=== PATIENT | female | born 1965 | race Caucasian/White ===

== ENCOUNTER 2018-01-26 07:15 | Inpatient (IN) ==
--- NOTE | 2018-01-26 07:37 | History & Physical Report ---
Date of Encounter: 01/26/18 Time of Encounter: 07:36 24 Hour HP Update - Instructions Instructions: If the History and Physical is less than 30 days old and was completed prior to A.M. admission and or procedure and has NOT been updated on calendar day of procedure please complete this update prior to performing procedure. - Update Patient reports changes in Medical Condition: No Changes in examination, assessment, or condition: No Changes in Medication: No Preop tests/diagnostics Reviewed: Yes Surgery Remains Indicated: Yes Consent for Planned Operative Procedure(s) Verified: Yes - Pre-Operative Checklist Preoperative Checklist Indicated: Yes Prophylactic Antibiotic Ordered: Yes Home Medications Include Beta Sarahy: No Beta Sarahy Taken Today (Day of Surgery): No Beta Sarahy Taken Yesterday (Day Prior to Surgery): No Is VTE Prophylaxis Indicated?: Yes
[2018-01-26] MEDS ORDERED: Famotidine 20 MG/2 ML VIAL IVP ONE (08:04)
[2018-01-26] MEDS ORDERED: Metoclopramide 10 MG/2 ML VIAL IVP ONE (08:04)
[2018-01-26] MEDS ORDERED: Scopolamine Patch 1.5 MG PATCH.TD72 TD ONE (08:04)
[2018-01-26] MEDS ORDERED: Pregabalin 75 MG CAPSULE PO ONE (08:05)
[2018-01-26] MEDS ORDERED: Acetaminophen IV 1,000 MG/100 ML INFUS..BTL IVPB STA (08:05)
--- NOTE | 2018-01-26 08:09 | Anesthesia Evaluation PreOp ---
Date of Encounter: 01/26/18 Time of Encounter: 08:07 - Past History Planned Operation: CHANTAL/BSO, excision condyloma Cardiac History: HTN Pulmonary History: Denies Any Significant HX THEATRE PROGRAM DIRECTOR History: Denies Any Significant HX Other Medical History: Diabetes Type II (poorly controlled. HbA1c = 8/Avg glucose = 183) Anesthesia History: No Prior Anesthetic Complications, Past Anesthesia (Tubal Ligation, Conization, Excision R-LE tumor) : No Alcohol Use: none Drug use: none Medications and Allergies Ferrous Sulfate [Iron] 325 mg PO BID 01/26/18 [History] Metformin HCl [Glucophage] 1,000 mg PO BID 01/26/18 [History] Olmesartan/Hydrochlorothiazide [Olmesartan-Hctz 20-12.5 mg Tab] 1.5 tab PO DAILY 01/26/18 [History] Pioglitazone HCl [Actos] 30 mg PO DAILY 01/26/18 [History] 3 Allergy/AdvReac Type Severity Reaction Status Date / Time Amoxicillin Allergy Rash Verified 01/26/18 07:42 - Meds/Allergy Pre-op Review Medications Reviewed: Yes Allergies Reviewed: Yes Beta Blockers on Current Med List: No Anesthesia Results - Labs Laboratory Tests 01/02/18 01/19/18 01/19/18 13:01 12:05 12:05 WBC 6.4 Hgb 10.9 L Hct 32.6 L Plt Count 299 Est Mean Plasma Glucose 183 Hemoglobin A1c 8.0 H Serum , Qual 01/19/18 12:05 WBC Hgb Hct Plt Count Est Mean Plasma Glucose Hemoglobin A1c Serum , Qual Negative - Imaging EKG: image reviewed (EKG dated 01/19/2018 - 95bpm SINUS RHYTHM LOW QRS VOLTAGE IN PRECORDIAL LEADS POSSIBLE ANTERIOR MYOCARDIAL INFARCTION, PROBABLY OLD Electronically Signed On 01-21-2018 6:07:36 EDT by Dick Norman) Anesthesia Exam O2 Sat Height 1.65 m Height 1.65 m Weight 89.358 kg Weight 89.358 kg O2 Sat by Pulse Oximetry 98 Vital Signs Temp Pulse Resp BP Pulse Ox 98.1 F 97 18 156/96 98 01/26/18 07:45 01/26/18 07:45 01/26/18 07:45 01/26/18 07:45 01/26/18 07:45 Height: 5'5" Weight: 197# BMI = 33 NPO (# of Hours): MNoc - HEENT Pupil (Motor): Pupils equal, EOMI Mallampati: II Teeth: Normal Oral Opening: Greater than 3 - THEATRE PROGRAM DIRECTOR LOC: Oriented THEATRE PROGRAM DIRECTOR Motor: Normal RUE, Normal LUE, Normal RLE, Normal LLE, Normal Face THEATRE PROGRAM DIRECTOR Sensory: Normal: RUE, LUE, RLE, LLE, Face - Cardiac Rhythm: Regular Murmur: None - Pulmonary Breath Sounds: bilateral Clear Respiratory Effort: Symmetrical Anesthesia Assess/Plan ASA Score: 3 (Obesity/BMI = 33, HTN, DM) Modified Lakeisha Scale for Level of Consciousness: Cooperative, oriented, and tranquil Anesthetic Plan: General, Regional Monitoring Plan: Standard Monitors Recovery Plan: PACU Anes Supervising Prov Stmt: PT seen/evaluated, R&B discussed, questions answered and consent obtained - MD Sendy
[2018-01-26] MEDS ORDERED: Lidocaine -MPF 2% 2 ML VIAL ONE ×2 (08:35→09:58)
[2018-01-26] MEDS ORDERED: *HR* FentaNYL (PF) 100 MCG/2 ML VIAL ONE (08:35)
[2018-01-26] MEDS ORDERED: *HR* Propofol 200 MG/20 ML VIAL IVP ONE (08:35)
[2018-01-26] MEDS ORDERED: *HR* Rocuronium Bromide 50 MG/5 ML VIAL ONE (08:35)
[2018-01-26] MEDS ORDERED: *HR* Midazolam HCl 2 MG/2 ML VIAL ONE (08:35)
[2018-01-26] MEDS ORDERED: Clindamycin 900 MG/50 ML 900 MG/50 ML IV.SOLN IVPB ONE (08:36)
[2018-01-26] MEDS ORDERED: Bupivacaine/EPI 1:200k 0.5%PF 10 ML VIAL ONE (08:37)
[2018-01-26] MEDS: Ringers Solution, Lactated 1,000 ML IVC SCH ×5 (08:37→19:52)
[2018-01-26] MEDS ORDERED: Bupivacaine/PF 0.75% in Dex 2 ML AMPUL INFILT ONE (08:45)
[2018-01-26] MEDS ORDERED: *HR* Morphine Sulfate/PF 10 MG/10 ML AMPUL ONE (09:07)
[2018-01-26] MEDS ORDERED: *HR* PHENYLEPHRINE 1,000 MCG/10 ML SYRINGE IVP ONE (09:47)
[2018-01-26] MEDS ORDERED: Dexamethasone 4 MG/ML VIAL ONE ×2 (10:22→11:53)
[2018-01-26] MEDS ORDERED: Ondansetron 4 MG/2 ML VIAL ONE (10:22)
[2018-01-26] MEDS ORDERED: EPHEDrine 50 MG/ML VIAL ONE (10:23)
[2018-01-26] MEDS ORDERED: Neostigmine Methylsulfate 3 MG/3 ML SYRINGE ONE (10:23)
[2018-01-26] MEDS ORDERED: *HR* HYDROmorphone (PF) 1 MG/ML SYRINGE IVP PRN (10:27)
[2018-01-26] MEDS ORDERED: Ondansetron 4 MG/2 ML VIAL IVP ONE (10:27)
[2018-01-26] MEDS ORDERED: *HR* Promethazine 25 MG/ML VIAL IVP PRN (10:27)
[2018-01-26] MEDS ORDERED: *HR* Morphine 2 MG/ML SYRINGE IVP PRN (10:27)
[2018-01-26] MEDS ORDERED: *HR* Succinylcholine 200 MG/10 ML VIAL IVP ONE (10:33)
[2018-01-26] MEDS ORDERED: Bupivacaine/Clonidine Syringe 1 EACH SYRINGE ONE (11:31)
--- NOTE | 2018-01-26 12:16 | OB/GYN Procedure Note ---
Hysterectomy - Diagnosis Date of procedure: 01/26/18 Hysterectomy pre-op: menorrhagia, symptomatic leiomyomata, other (Symptomatic condyloma) Post-op diagnosis: same - Procedure Hysterectomy procedure: total abdominal hysterectomy, bilateral salpingo- oophorectomy, other (Resection of multiple condyloma taking approximately 45 minutes) Surgeon: Kentrell Muro Was there an child care assistant present: Yes Finance Teacher: Nancy Rosado Anesthesia Type: General Estimated blood loss (cc): 450 Complications: none Specimens: right ovary, uterus, cervix, left ovary, right fallopian tube, left fallopian tube, other (Vaginal condyloma) Findings: Enlarged fibroid uterus normal fallopian tubes and ovaries multiple condyloma labia minora and majora Disposition: PACU Narrative: Patient's a 52-year-old female with very heavy prolonged menstrual cycles that are quite disabling. She also has multiple large condyloma labia minora and majora irritated and disfiguring. After discussing patient's options she desired total abdominal hysterectomy bilateral salpingectomy oophrectomy and resection of multiple condyloma she is aware operative risks and signed appropriate consent. Description procedure: Patient was taken operating room where general anesthesia was administered. She is prepped draped in usual sterile fashion. Bladder was drained with Goss catheter. Scalpel was used to make a Pfannenstiel skin incision which was taken down to the fascia fascia was incised midline fascial incision was extended bilaterally. Plane was developed and rectus muscle rectus fascia distally rectus muscles were run midline peritoneum was entered. No incision was extended bilaterally. Uterus is enlarged with multiple fibroids the largest fibroid being posteriorly along the uterus fundus. Both fallopian tubes and ovaries were normal. She was delivered abdominally and laparotomy sponges were placed in the abdomen to pack the bowel operative field. Ligatures taken crossed infundibulopelvic ligaments on each side these were cauterized and transected. LigaSure was then taken across the mesosalpinx and it was cauterized without difficulty. Ligatures taken crossed the round ligaments on each side these were cauterized and transected. Broad ligaments were cauterized with LigaSure and transected. This point Mary since counts were used to take down the bladder flap. He used to combination LigaSure as well as clamps to transect and ligate the parametrium on each side. Upon reaching levels cervix curved Robbi clamps taken crossed top the vagina these were transected and cervix uterus tubes and ovaries removed vaginal cuff was closed with 0 Vicryl. This point thorough irrigation was performed hemostasis was ensured. Fascia was closed with oh loop PDS. Skin edges reapproximated with 4-0 Vicryl. There were multiple large condyloma extending mostly along the upper labium minora and majora from half with the vagina around the clitoral lema. These multiple condyloma were sharply transected were shaved off the skin. All the incisions were then closed with 4-0 Vicryl in running and interrupted manner. In total to approximate 45 minutes to shave off transected and ligate the areas of transection. This point all sponge and instruments counts are correct patient was awakened taken recovery in good condition.
[2018-01-26] MEDS ORDERED: Naloxone 0.4 MG/ML INJ IVP PRN (12:18)
[2018-01-26] MEDS ORDERED: *HR* HYDROcodone/Acet 5/325 mg TABLET PO PRN (12:18)
[2018-01-26] MEDS ORDERED: Ondansetron 4 MG/2 ML VIAL IVP PRN (12:18)
[2018-01-26] MEDS ORDERED: Ibuprofen 600 MG TABLET PO PRN (12:20)
--- NOTE | 2018-01-26 12:54 | Anesthesia Evaluation Post Op ---
Date of Encounter: 01/26/18 Time of Encounter: 12:52 - Vital Signs Vital Signs: Vital Signs/O2 Sat/Glucose, Most Recent Temp Pulse Resp BP Pulse Ox 97.6 F 111 13 125/73 94 01/26/18 12:45 01/26/18 12:45 01/26/18 12:45 01/26/18 12:45 01/26/18 12:45 Blood Glucose* 166 - Lungs Lungs: Clear Ascult./Percussion - Airway Airway: Non-obstructed - Cardiovascular Regular Rate - Mental Status Mental Status: Alert & Oriented, Answers Appropriately - Pain Pain Scale: 0 Pain Scale used: Numeric (1 - 10) - Nausea Vomiting Nausea Vomiting: Not Present - Hydration Hydration: NPO, Has not voided - Discharge PostOp Status: Transfer Patient to floor
[2018-01-26] MEDS ORDERED: *HR* Dextrose 50 % in Water (Syg) 50 ML SYRINGE IVP PRN (16:15)
[2018-01-26] MEDS ORDERED: D5% in Water 1,000 ML IVC PRN (16:15)
[2018-01-26] MEDS ORDERED: Dextrose Gel 15 GM/37.5 ML TUBE PO PRN ×2 (16:15)
[2018-01-26] MEDS: Insulin LISPRO 300 UNITS/3 ML VIAL SQ SCH (18:01)
[2018-01-26] MEDS: Silver Sulfadiazine 50 GM TUBE TP SCH (19:52)
[2018-01-27] MEDS: Insulin LISPRO 300 UNITS/3 ML VIAL SQ SCH ×5 (00:24→22:07)
[2018-01-27 04:48] LABS: Basophils % 0.2 %; Eosinophils % 0.1 %; Hemoglobin 9.2 g/dL (11.5-15.4); Immature Granulocytes % 0.4 % (0-4); Lymphocytes # 1.6 K/mcL (0.6-4.6); Lymphocytes % 14.7 %; Mean Corpuscular HGB Conc 31.7 g/dL (31.6-35.5); Mean Corpuscular Hemoglobin 23.8 pg (28.0-33.3); Mean Corpuscular Volume 75.1 fL (83.0-100.0); Mean Platelet Volume 10.5 fL (9.4-12.4); Monocytes # 1.1 K/mcL (0.0-1.3); Monocytes % 9.5 %; Neutrophils # 8.3 K/mcL (1.6-8.9); Platelet Count 259 K/mcL (140-400); Red Blood Count 3.86 M/mcL (3.82-4.97); Red Cell Distribution Width 21.8 % (11.5-14.5); Segmented Neutrophils % 75.1 %
--- NOTE | 2018-01-27 08:05 | OB/GYN Progress Note ---
Date of Encounter: 01/27/18 Time of Encounter: 08:03 - Assessment and Plan (1) S/P CHANTAL-BSO (total abdominal hysterectomy and bilateral salpingo- oophorectomy) Current Visit: Yes Status: Acute Doing well, will cont post op care. Will start estrogen per pt request, pt aware of risks and benefits. (2) Diabetes Current Visit: Yes Status: Acute cont glucoregulation Qualifiers: Diabetes mellitus type: type 2 Diabetes mellitus complication status: without complication Qualified Code(s): E11.9 - Type 2 diabetes mellitus without complications Subjective - Subjective Principal diagnosis: s/p CHANTAL/BSO and condyloma resection Interval history: Pt looks great today. Sitting up and eating liquids. Good pain control. Objective - Vital Signs Latest vital signs: Vital Signs Temp Pulse Resp BP Pulse Ox 01/27/18 06:15 98.8 F 96 16 130/78 99 01/27/18 00:19 98.7 F 101 14 115/76 98 01/26/18 19:50 98.5 F 115 16 126/79 97 01/26/18 16:21 97.7 F 121 14 134/74 97 01/26/18 15:25 98.2 F 115 14 130/78 96 01/26/18 14:15 97.7 F 111 17 124/78 99 01/26/18 13:45 97.9 F 109 17 120/74 99 01/26/18 13:20 97.6 F 105 14 126/72 94 01/26/18 12:55 97.6 F 108 14 127/75 93 01/26/18 12:45 97.6 F 111 13 125/73 94 01/26/18 12:35 108 13 126/72 93 01/26/18 12:25 111 15 133/71 94 01/26/18 12:15 97.4 F L 115 16 127/76 100 Intake and Output 01/26/18 01/27/18 01/27/18 23:59 07:59 15:59 Intake Total 1120 / 1120 600 / 600 Output Total 850 / 850 1900 / 1900 Balance 270 / 270 -1300 / -1300 Intake: IV Fluids 1000 / 1000 Lactated Ringers 1,000 ML @ 125 1000 / 1000 mls/hr IVC .Q8H CHIP Rx#: [id number] Oral 120 / 120 600 / 600 Output: Catheter 850 / 850 1900 / 1900 Other: Meal Dinner Percent of Meal Consumed 30% Weight 90.718 kg Blood Glucose* 266 177 Patient Weight 01/27/18 23:59 Weight 90.718 kg - I&O's I&O's: Intake & Output 01/24/18 01/25/18 01/26/18 01/27/18 23:59 23:59 23:59 23:59 Intake Total 3120 / 3120 600 / 600 Output Total 1875 / 1875 1900 / 1900 Balance 1245 / 1245 -1300 / -1300 Weight 93.5 kg 90.718 kg - Exam Lungs: bilateral: normal Chest: Normal S1, Normal S2 Extremities: Present: normal Abdomen: Present: soft Incision OB: Present: normal, intact - Labs Labs: Abnormal lab results Hgb 9.2 g/dL (11.5-15.4) L 01/27/18 04:21 Hct 29.0 % (35.3-44.9) L 01/27/18 04:21 MCV 75.1 fL (83.0-100.0) L 01/27/18 04:21 MCH 23.8 pg (28.0-33.3) L 01/27/18 04:21 RDW 21.8 % (11.5-14.5) H 01/27/18 04:21 POC Glucose 150 mg/dL (70-99) H 01/27/18 07:36 Consult Discharge Plan - Plan Referrals: Kentrell Melgar DO [Primary Care Provider] -
[2018-01-27] MEDS: Valsartan 80 MG TABLET PO SCH (08:10)
[2018-01-27] MEDS: Silver Sulfadiazine 50 GM TUBE TP SCH ×2 (08:20→22:12)
[2018-01-27] MEDS ORDERED: Ondansetron ODT 4 MG TAB.RAPDIS SL PRN (19:00)
--- NOTE | 2018-01-28 07:54 | Discharge Summary ---
Date of Encounter: 01/28/18 Time of Encounter: 07:55 - Discharge Diagnosis (1) S/P CHANTAL-BSO (total abdominal hysterectomy and bilateral salpingo- oophorectomy) Priority: Primary Status: Acute Comments: Doing well, will d/c home. (2) Diabetes Priority: Secondary Status: Acute Comments: Encouraged on importance of tight glucoregulation Qualifiers: Diabetes mellitus type: type 2 Diabetes mellitus complication status: without complication Qualified Code(s): E11.9 - Type 2 diabetes mellitus without complications - Discharge Medications Prescriptions: HYDROcodone/Acet 5/325 mg [[place] 5-325 mg] 1 tab PO Q4HR PRN 7 Days #30 tablet PRN Reason: Moderate Pain (4-6) Ibuprofen [Motrin] 600 mg PO Q6HR PRN #40 tablet PRN Reason: Pain Estradiol 1 mg PO DAILY #90 tablet Home Medications: Ferrous Sulfate [Iron] 325 mg PO BID 01/26/18 [History] Metformin HCl [Glucophage] 1,000 mg PO BID 01/26/18 [History] Olmesartan/Hydrochlorothiazide [Olmesartan-Hctz 20-12.5 mg Tab] 1.5 tab PO DAILY 01/26/18 [History] Pioglitazone HCl [Actos] 30 mg PO DAILY 01/26/18 [History] Estradiol 1 mg PO DAILY #90 tablet 01/28/18 [Rx] HYDROcodone/Acet 5/325 mg [[place] 5-325 mg] 1 tab PO Q4HR PRN 7 Days #30 tablet 01/28/18 [Rx] Ibuprofen [Motrin] 600 mg PO Q6HR PRN #40 tablet 01/28/18 [Rx] Allergies/Adverse Reactions: 3 Allergy/AdvReac Type Severity Reaction Status Date / Time Amoxicillin Allergy Rash Verified 01/26/18 07:42 Data Procedures and tests throughout hospitalization: Laboratory Tests 01/26/18 01/26/18 01/26/18 07:43 08:37 17:50 WBC RBC Hgb Hct MCV MCH MCHC RDW Plt Count MPV Immature Gran % Seg Neutrophils % Lymphocytes % Monocytes % Eosinophils % Basophils % Neutrophils # Lymphocytes # Monocytes # Eosinophils # Basophils # POC Glucose 152 H 266 H Blood Type O POSITIVE Antibody Screen NEGATIVE 01/27/18 01/27/18 01/27/18 00:10 04:21 07:36 WBC 11.1 RBC 3.86 Hgb 9.2 L Hct 29.0 L MCV 75.1 L MCH 23.8 L MCHC 31.7 RDW 21.8 H Plt Count 259 MPV 10.5 Immature Gran % 0.4 Seg Neutrophils % 75.1 Lymphocytes % 14.7 Monocytes % 9.5 Eosinophils % 0.1 Basophils % 0.2 Neutrophils # 8.3 Lymphocytes # 1.6 Monocytes # 1.1 Eosinophils # 0.0 Basophils # 0.0 POC Glucose 177 H 150 H Blood Type Antibody Screen 01/27/18 01/27/18 01/27/18 11:25 16:39 21:37 WBC RBC Hgb Hct MCV MCH MCHC RDW Plt Count MPV Immature Gran % Seg Neutrophils % Lymphocytes % Monocytes % Eosinophils % Basophils % Neutrophils # Lymphocytes # Monocytes # Eosinophils # Basophils # POC Glucose 184 H 212 H 214 H Blood Type Antibody Screen Labs on day of discharge: Labs from last 24 hours 01/27/18 01/27/18 01/27/18 21:37 16:39 11:25 POC Glucose 214 H 212 H 184 H - Impressions Doing very well. No pain. Regular diet without n/v, + flatus. Ambulating. Minimal bleeding , wants to go home. Date of admission: 01/26/18 13:13 Primary care physician: Kentrell Melgar DO - Patient Status Disposition: Home, Self-Care Condition: Good Functional capacity at discharge: independent ambulation Overall status at discharge: patient is progressing back to baseline - Discharge Instructions Instructions: Diabetes Mellitus Type 2 in Adults (DC) Follow Up With: Kentrell Muro MD [Partnered Physician] - Additional Instructions: Use the Silvadene cream once to twice a day on bottom. Call for signs or symptoms of infection or bleeding like a period. - Diet and Activity Activity: increase activity as tolerated Diet: diabetic diet Hospital Course DIRECTOR BUSINESS Time Attestation: Total time spent providing and/or coordinating discharge services: Exam - Constitutional Vitals: Temp Pulse Resp BP Pulse Ox 98.9 F 99 14 149/90 95 01/28/18 04:38 01/28/18 04:38 01/28/18 04:38 01/28/18 04:38 01/28/18 04:38 General appearance IM: A&O X 3 - Respiratory Respiratory exam: Present: CTAB - Cardiovascular Cardiovascular exam IM: Present: RRR - GI/Abdominal GI/Abdominal exam IM: normal bowel sounds Incision: normal - Neurological Exam Neurological exam: oriented X3 - VTE Documentation of Mechanical Device: Intermittent pneumatic compression device
[2018-01-28] MEDS: Valsartan 80 MG TABLET PO SCH (08:06)
[2018-01-28] MEDS: Insulin LISPRO 300 UNITS/3 ML VIAL SQ SCH (08:09)
[2018-01-28 08:59] VITALS: BP 137/74
== END 2018-01-28 09:45 | disposition home or self-care (01) | DRG 743 ==
LOC: SAMDAY 07:15 → 1NENUOBS 13:13
PROVIDERS: ADMIT Obstetrics & Gynecology; ATTEND Obstetrics & Gynecology